=== PATIENT | male | born 1950 | race Caucasian/White ===

== ENCOUNTER 2022-03-15 11:09 | Emergency (ER) | payer MEDICARE, BC ==
[~2022-03-15 11:09] MED LIST: Iopamidol 370 76% 100 ML VIAL ONE
[2022-03-15 12:27] LABS: #Eosinphils 0.2 10x3/uL (0.0-0.5); #Monocytes 0.6 10x3/uL (0.0-1.1); #Neutrophils 4.4 10x3/uL (1.5-8.4); %Basophils 0.3 % (0.0-2.0); %Eosinophils 3.9 % (0.0-6.0); %Lymphocytes 13.4 % (18.0-47.0); %Neutrophils 71.7 % (40.0-75.0); Hemoglobin 11.2 g/dL (13.5-17.5); Mean Corpuscular HGB CONC 33.9 g/dL (32.0-36.0); Mean Corpuscular Hemoglobin 31.5 pg (27.0-33.0); Mean Corpuscular Volume 92.7 fl (81.2-95.1); Platelet Count 256 10x3/uL (150-450); RBC Distribution Width 13.1 % (11.5-14.5); Red Blood Cell (RBC) Count 3.56 10x6/uL (4.32-5.72); White Blood Cell (WBC) Count 6.1 10x3/uL (3.5-10.5)
[2022-03-15 12:39] LABS: ALT (SGPT) 20 U/L (8-55); AST (SGOT) 15 U/L (5-34); Albumin 3.8 g/dL (3.4-4.8); Alkaline Phosphatase 51 U/L (40-110); Anion Gap 13 mmol/L (10-20); BUN (Urea Nitrogen) 18 mg/dL (8.4-25.7); Bilirubin, Total 0.4 mg/dL (0.2-1.2); Calc. Creatinine Clearance 0 mL/min (70-130); Calcium 9.7 mg/dL (7.8-10.44); Carbon Dioxide 29 mmol/L (23-31); Chloride 96 mmol/L (98-107); D-Dimer Test 0.45 mg/L FEU (0.19-0.50); Estimated GFR 92; Globulin 3.1 g/dL (2.4-3.5); Glucose 188 mg/dL (83-110); INR-International Normal Ratio 0.9; PTT 24.2 sec (22.0-33.0); Potassium 3.9 mmol/L (3.5-5.1); Protein, Total 6.9 g/dL (5.8-8.1); Prothrombin Time 9.6 sec (9.5-12.1); Sodium 134 mmol/L (136-145)
[2022-03-15] MEDS ORDERED: Tranexamic Acid 1,000 MG/10 ML VIAL ONE (13:06)
[2022-03-15] MEDS ORDERED: Albuterol Sulfate 2.5 mg/3 ml Neb ONE (13:09)
[2022-03-15] MEDS ORDERED: Heparin 25,000 units/D5W 500 ML ONE (16:26)
[2022-03-15] MEDS ORDERED: Ondansetron PF 4 MG/2 ML Vial ONE (16:26)
[2022-03-15] MEDS ORDERED: Heparin 5,000 UNITS/ML VIAL ONE (16:26)
[2022-03-15 20:30] LABS: Bilirubin Neg (Negative); Blood, Urine Negative (Negative); Clarity Clear (Clear); Glucose, Urine (Dipstick) Normal (Negative); Ketone, Urine Negative (Negative); Leukocyte Negative (Negative); Nitrite Negative (Negative); Protein, Urine (Dipstick) Negative (Neg-Trace); Specific Gravity, Urine 1.015 (1.005-1.030); Urobilinogen Normal mg/dL (Less than 2)
[2022-03-15] MEDS ORDERED: Insulin Regular 300 UNITS/3 ML VIAL ONE (21:27)
[2022-03-15 21:29] LABS: SARS-CoV-2 NAA Rapid Test Not Detected (NotDetected)
[2022-03-15] MEDS ORDERED: Propranolol 10 MG TAB PO SCH (23:00)
[2022-03-15] MEDS ORDERED: Mirtazapine 15 MG TAB PO SCH (23:00)
[2022-03-15] MEDS ORDERED: Gabapentin 300 MG CAP ONE (23:01)
== END 2022-03-16 00:52 | disposition short-term general hospital (02) ==
LOC: CSHERS 11:09
DX: I26.99 Other pulmonary embolism without acute cor pulmonale (principal); J47.9 Bronchiectasis, uncomplicated; R04.2 Hemoptysis; I10 Essential (primary) hypertension; E03.9 Hypothyroidism, unspecified; E11.9 Type 2 diabetes mellitus without complications; E78.00 Pure hypercholesterolemia, unspecified; Z20.822 Contact with and (suspected) exposure to COVID-19; Z79.82 Long term (current) use of aspirin; Z79.84 Long term (current) use of oral hypoglycemic drugs; Z79.899 Other long term (current) drug therapy
CPT/HCPCS: 71045; 71275; 80053; 81003; 82962; 84484; 85025; 85379; 85610; 85730 ×2; 86850; 86900; 86901; 93005; 94644; 94760; 96361; 96365; 96366; 96375; 99285; U0002; 36415; 36416; J1644; J1815; J2405; J7611; Q9967